=== PATIENT | female | born 1945 | race Native Hawaiian/Other Pacific Islander ===

== ENCOUNTER 2016-03-13 11:03 | Outpatient (CLI) | payer OTHER | END 2016-03-13 20:05 | disposition home or self-care (01) | LOC: US 11:03 | DX: E07.89 Other specified disorders of thyroid (principal); M41.86 Other forms of scoliosis, lumbar region ==

== ENCOUNTER 2016-05-15 08:13 | Outpatient (CLI) | payer OTHER | END 2016-05-15 09:13 | disposition home or self-care (01) | LOC: RAD 08:13 | DX: M41.86 Other forms of scoliosis, lumbar region (principal) ==

== ENCOUNTER 2016-05-24 09:12 | Outpatient (CLI) | payer OTHER | END 2016-05-24 19:04 | disposition home or self-care (01) | LOC: LABW 09:12 | DX: M10.071 Idiopathic gout, right ankle and foot (principal) | CPT/HCPCS: 36415; 84550; 85651 ==

== ENCOUNTER 2016-07-06 12:03 | Outpatient (CLI) | payer OTHER | END 2016-07-06 19:48 | disposition home or self-care (01) | LOC: LABW 12:03 | DX: M10.071 Idiopathic gout, right ankle and foot (principal) | CPT/HCPCS: 36415; 84550 ==

== ENCOUNTER 2016-07-07 10:47 | Outpatient (CLI) | payer OTHER | END 2016-07-07 19:03 | disposition home or self-care (01) | LOC: LABW 10:47 | DX: M10.071 Idiopathic gout, right ankle and foot (principal) | CPT/HCPCS: 36415; 85651 ==

== ENCOUNTER 2016-09-21 09:04 | Outpatient (CLI) | payer OTHER | END 2016-09-21 10:05 | disposition home or self-care (01) | LOC: RAD 09:04 | DX: M41.86 Other forms of scoliosis, lumbar region (principal) ==

== ENCOUNTER 2016-10-26 11:42 | Outpatient (CLI) | payer OTHER | END 2016-10-26 12:45 | disposition home or self-care (01) | LOC: LABW 11:42 | DX: M10.071 Idiopathic gout, right ankle and foot (principal); M10.072 Idiopathic gout, left ankle and foot | CPT/HCPCS: 36415; 84550 ==

== ENCOUNTER 2016-12-07 11:34 | Outpatient (CLI) | payer OTHER | END 2016-12-07 12:35 | disposition home or self-care (01) | LOC: LABW 11:34 | DX: M10.071 Idiopathic gout, right ankle and foot (principal); M10.072 Idiopathic gout, left ankle and foot | CPT/HCPCS: 36415; 84550 ==

== ENCOUNTER 2017-05-01 15:29 | Outpatient (CLI) | payer OTHER | END 2017-05-01 18:00 | LOC: LABW 15:29 | DX: M10.071 Idiopathic gout, right ankle and foot (principal) | CPT/HCPCS: 36415; 84550 ==

== ENCOUNTER 2019-01-01 08:10 | Outpatient (CLI) | payer OTHER | END 2019-01-01 20:08 | disposition home or self-care (01) | LOC: LABW 08:10 | DX: G31.84 Mild cognitive impairment of uncertain or unknown etiology (principal); E53.8 Deficiency of other specified B group vitamins | CPT/HCPCS: 36415; 82607; 82746; 84443 ==